=== PATIENT | male | born 1940 | race Caucasian/White ===

== ENCOUNTER 2019-12-24 06:00 | Outpatient (RCR) | payer MEDICARE, SELFPAY | END 2020-01-17 23:59 | disposition home or self-care (01) | LOC: WPT 06:00 | PROVIDERS: Family Provider Nurse Practitioner; PCP Nurse Practitioner; Referring Provider Physician Assistant Surgical; Visit Provider Physician Assistant Surgical | DX: Z47.1 Aftercare following joint replacement surgery (principal); Z96.651 Presence of right artificial knee joint | CPT/HCPCS: 97110; 97112; 97116; 97161 ==

== ENCOUNTER 2020-01-18 06:00 | Outpatient (RCR) | payer MEDICARE, SELFPAY | END 2020-02-17 23:59 | disposition home or self-care (01) | LOC: WPT 06:00 | PROVIDERS: Family Provider Nurse Practitioner; PCP Nurse Practitioner; Referring Provider Physician Assistant Surgical; Visit Provider Physician Assistant Surgical | DX: Z47.1 Aftercare following joint replacement surgery (principal); Z96.651 Presence of right artificial knee joint | CPT/HCPCS: 97110 ==

== ENCOUNTER 2021-02-06 21:40 | Inpatient (IN) | payer MEDICARE, SELFPAY ==
[2021-02-06 21:07] VITALS: BMI 35.4
[2021-02-06 21:39] VITALS: BP 190/100; PULSE 76; RESP 18; TEMP 36.6; O2SAT 96
--- NOTE | 2021-02-06 21:45 | PM.HP ---
Providers/Chief Complaint Admitting Physician: Jacobo Chatman Primary Care Provider: Miguelangel High Chief Complaint: had small stroke History of Present Illness The patient is a transfer from [facility] with diagnosis of CVA. Fernando Ortega is a 80 year old male with past medical history of hypertension, diabetes who presented to emergency room with complaints of sudden onset of confusion this morning. Imaging subsequently revealed left parietal subacute CVA. According to the patient he was at his baseline state of health this morning. The symptoms started suddenly when he tried to open his gun safe. At that point he developed confusion and was unable to open the door of the safe. He could not find any words to speak. He denies any similar episodes in the past. Denies any history of heart disease or stroke. He denies associated focal weakness or sensory loss. Denies problems with balance or coordination. Denies problems with vision or hearing. He has chronic problems with hearing. No facial asymmetry. Denies chest pain, shortness of breath, cough, palpitations. No fever or chills. Past medical history significant for BPH, diabetes and hypertension. He is ex-smoker. Denies alcohol. Surgical history is positive for right total knee replacement. Review of Systems General: Reports: 10 or more systems reviewed and unremarkable except in HPI and below Medications/Allergies Allergies Allergy/AdvReac Type Severity Reaction Status Date / Time No Known Allergies Allergy Verified 02/06/21 21:23 Vitals/I&O/Wt Weight last 48 hrs Weight 121.835 kg Physical Exam Narrative: EXAM NARRATIVE: The patient is awake alert and oriented. No acute distress. Mood and affect are appropriate. Responses are adequate. Is a poor historian due to difficulty finding words. However he is able to answer to simple questions. Primarily answers yes or no. Occasionally stumbles in his answers. However there is no aphasia or dysarthria. He is oriented currently x4. No acute distress Skin is warm and dry. Moist mucous brains Eyes PERRL, extraocular muscles are intact Cranial nerves II through XII are grossly intact No focal weakness or sensory loss. Cerebellar tests are grossly within normal range. Neck is supple. No JVD Lungs are clear to auscultation bilaterally. No respiratory distress Heart S1, S2, regular Abdomen obese, soft, nontender, bowel sounds are present Extremities no edema cyanosis or calf tenderness bilaterally Data Other Labs: Please see CT report in the patient's chart. It showed small left parietal subacute CVA. No UTI CBC and chemistry panel without gross abnormalities. A&P Additional A&P Information 80-year-old male with past medical history of hypertension, diabetes, BPH who presents with complaints of sudden onset confusion and difficulty with speech. Left parietal subacute CVA. Will start stroke work-up including MRI of the brain, MRA head and neck, echo, EKG. We will continue aspirin, statin. Blood pressure management per stroke protocol. Hypertension. As above. Dyslipidemia. Check fasting lipids in the morning. DVT prophylaxis. Lovenox. CODE STATUS. The patient wants to be full code. The plan of care was discussed with the patient. He verbalized understanding and agreement. Attestations Medical Necessity Statement*: Based on my assessment of patient's condition he will require more than 2 midnights in the hospital for completion of the work-up and Coding Level of Care Code Acute Service Liaison Representative for Vickie Plummer
--- NOTE | 2021-02-06 21:50 | ECG_ITS ---
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 Measurements Intervals [place] Rate: 63 P: 52 [place]: 141 QRS: 57 QRSD: 111 T: 79 QT: 427 QTc: 437 Interpretive Statements SINUS RHYTHM MODERATE INTRAVENTRICULAR CONDUCTION DELAY [110+ ms QRS DURATION] No previous ECG available for comparison Electronically Signed On 02-10-2021 18:42:[address] M.D. [email or web address] Club81st medical groupRemark Mediauniversity hospitals cleveland medical centerTherapeutic Monitoring Systems Inc./store/[id number]
[2021-02-06] MEDS: enoxaparin 40 mg/0.4 mL Syringe SUBCUT (22:12)
[2021-02-06 23:56] VITALS: BP 144/69; PULSE 60; RESP 18; TEMP 36.4; O2SAT 95
[2021-02-07] VITALS (9 sets, daily range): BP systolic 145–179; BP diastolic 71–91; PULSE 62–71; RESP 16–20; TEMP 36.3–36.9; O2SAT 93–95
--- NOTE | 2021-02-07 06:00 | USCV_ITS ---
Fernando Ortega Age: 80 Gender: M : 1940 Exam Date: 02/07/2021 09:01 Ordering Phys: Jacobo Chatman MD Technologist: Jonna Arias Exam Location: [facility] Indication: CVA BP: 179 / 91 HR: 69 Rhythm: Sinus Technical Quality: Fair MEASUREMENTS (Male / Female) Normal Values 2D ECHO LV Diastolic Diameter PLAX 3.3 cm 4.2 - 5.9 / 3.9 - 5.3 cm LV Systolic Diameter PLAX 2.3 cm LV Chamber Size 3.6 cm IVS Diastolic Thickness 1.6 cm 0.6 - 1.0 / 0.6 - 0.9 cm IVS Systolic Thickness 1.8 cm LVPW Diastolic Thickness 1.0 cm 0.6 - 1.0 / 0.6 - 0.9 cm LVPW Systolic Thickness 1.0 cm RV Chamber Size 2.6 cm LVOT Diameter 2.2 cm LV Ejection Fraction 2D Teich 61.2 % LV Ejection Fraction MOD 2C 63.7 % LV Ejection Fraction 2C AL 64.9 % LA Diameter 3.5 cm LA Width 2.8 cm LA Height 5.4 cm RA Width 2.5 cm RA Height 3.4 cm Aorta at Sinotubular Diameter 2.6 cm M-MODE LV Diastolic Diameter MM 5.7 cm 4.2 - 5.9 / 3.9 - 5.3 cm LV Systolic Diameter MM 3.6 cm LV Ejection Fraction MM Teich 66.0 % IVS Diastolic Thickness MM 1.3 cm 0.6 - 1.0 / 0.6 - 0.9 cm IVS Systolic Thickness MM 1.5 cm LVPW Diastolic Thickness MM 1.4 cm 0.6 - 1.0 / 0.6 - 0.9 cm LVPW Systolic Thickness MM 2.1 cm Aortic Annulus Diameter 4.1 cm LA Ao Ratio MM 1.0 DOPPLER AV Peak Velocity 143.3 cm/s LVOT Peak Velocity 101.0 cm/s AV Area Cont Eq vti 2.6 cm squared AV Area Cont Eq pk 2.6 cm squared MV Area PHT 3.3 cm squared Mitral E to A Ratio 0.5 MV E' Velocity 34.0 cm/s Mitral E to MV E' Ratio 9.8 Mitral E to LV E' Lateral Ratio 7.6 Mitral E to LV E' Septal Ratio 13.8 TV Peak E Velocity 31.0 cm/s Right Atrial Pressure 3.0 mmHg PV Peak Velocity 105.0 cm/s RV Acceleration Time 0.1 s RV Ejection Time 0.3 s RV AcT/ET 0.3 FINDINGS Left Ventricle Normal left ventricular size. LV systolic function with EF of 55-60%. No regional wall motion abnormalities. Grade 1 diastolic dysfunction Right Ventricle The right ventricle is normal in size and function. Right Atrium The right atrium is normal in size. Left Atrium The left atrium is normal in size. Mitral Valve Structurally normal mitral valve without significant stenosis or prolapse. There is mild mitral regurgitation. Aortic Valve Not well visualized. No significant stenosis. There is no aortic regurgitation. Tricuspid Valve Structurally normal tricuspid valve without significant stenosis or regurgitation. Insufficient TR jet to calculate RVSP Pulmonic Valve Not well visualized Pericardium Normal pericardium without effusion. Aorta Normal ascending aorta dimension. CONCLUSIONS LV systolic function is normal with EF of 55-60% Grade 1 diastolic dysfunction Mild mitral regurgitation No comparison study is available Rene Jensen MD (Electronically Signed) Final Date: 07 Feb 2021 16:06 S
[2021-02-07 06:15] LABS: Basophils % 0.5 %; Eosinophils # 0.1 10^3/uL (0.0-0.8); Eosinophils % 1.8 %; Hematocrit 45.2 % (42.0-52.0); Hemoglobin 14.5 g/dL (11.7-16.6); Lymphocytes # 1.6 10^3/uL (0.8-4.8); Lymphocytes % 27.4 %; Mean Corpuscular HGB Conc 32.1 g/dL (30.0-36.0); Mean Corpuscular Hemoglobin 29.2 pg (28.0-34.0); Mean Corpuscular Volume 91.1 fL (80-94); Mean Platelet Volume 11.1 fL (7.4-10.4); Monocytes # 0.5 10^3/uL (0.2-0.9); Monocytes % 7.8 %; Neutrophils # 3.73 10^3/uL (1.8-7.7); Neutrophils % 62.3 %; Nucleated Red Blood Cells % 0 %; Platelet Count 203 10^3/cmm (130-400); Red Blood Count 4.96 10^6/uL (4.1-5.3); Red Cell Distribution Width 13.2 % (12.1-15.1)
[2021-02-07 06:30] LABS: Estmated Average Glucose 103; Hemoglobin A1C 5.2 % (4.0-6.0)
[2021-02-07 06:37] LABS: Alanine Aminotransferase 9 U/L (0-41); Albumin Level 3.9 g/dL (3.5-5.2); Alkaline Phosphatase 71 IU/L (40-130); Aspartate Amino Transferase 14 U/L (0-40); Blood Urea Nitrogen 18 mg/dL (8-23); Carbon Dioxide 30 mmol/L (22-29); Chloride 104 mmol/L (98-107); Chol HDL Ratio 4.75 mg/dL (1.0-5.00); Cholesterol 171 mg/dL (0-200); Globulin 2.8 g/dL (1.3-4.6); Glucose 97 mg/dL (65-115); HDL Cholesterol 36 mg/dL (60-100); LDL Cholesterol Calculated 113 mg/dL (50-129); LDL HDL Ratio 3.14 RATIO (0.00-3.22); Magnesium 2.1 mg/dL (1.7-2.3); Osmolality Calculated 296 mOsm/kg (285-295); Sodium 142 mmol/L (136-145); Total Bilirubin 0.5 mg/dL (0.15-1.2); Total Protein 6.7 g/dL (6.6-8.7); Triglycerides 108 mg/dL (0-150)
[2021-02-07 06:39] LABS: Anion Gap 11.9 (5-19); Potassium 3.9 mmol/L (3.5-5.1)
--- NOTE | 2021-02-07 07:34 | PC.NURSE ---
I reported the bp to the nurse 179/91
[2021-02-07] MEDS: aspirin 81 mg EC Tablet 162 MG PO (08:47)
--- NOTE | 2021-02-07 08:53 | MRR_ITS ---
PROCEDURE INFORMATION: Exam: MR Head Without Contrast Exam date and time: 02/07/2021 8:54 AM Age: 80 years old Clinical indication: Altered mental status/memory loss; Additional info: CVA TECHNIQUE: Imaging protocol: MR of the head without contrast. COMPARISON: No relevant prior studies available. FINDINGS: Brain: Small acute/recent left basal ganglia lacunar infarct. No hemorrhage, edema, or mass effect. Chronic microvascular ischemic change. Small old left parietal infarction. Cerebral ventricles: Normal. No ventriculomegaly. Bones/joints: Unremarkable. Paranasal sinuses: Normal as visualized. No acute sinusitis. Mastoid air cells: Normal as visualized. No mastoid effusion. Orbital cavity: Unremarkable. Soft tissues: Unremarkable. MR/MR head wo con* [id number] IMPRESSION: Acute/recent left basal ganglia infarct.
--- NOTE | 2021-02-07 09:15 | ECG_ITS ---
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 Measurements Intervals [place] Rate: 68 P: 48 [place]: 146 QRS: 37 QRSD: 109 T: 70 QT: 408 QTc: 434 Interpretive Statements SINUS RHYTHM Compared to ECG 02/06/2021 23:22:49 Intraventricular conduction delay no longer present Electronically Signed On 02-10-2021 18:38:[address] M.D. [email or web address] [email or web address] grant usaf medical [email or web address]/store/[id number]
--- NOTE | 2021-02-07 11:15 | ECG_ITS ---
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 Measurements Intervals [place] Rate: 76 P: 31 DE: 129 QRS: 30 QRSD: 110 T: 67 QT: 377 QTc: 424 Interpretive Statements SINUS RHYTHM NONSPECIFIC T-WAVE ABNORMALITY Compared to ECG 02/07/2021 09:36:56 T-wave abnormality now present Electronically Signed On 02-10-2021 18:42:[address] M.D. [email or web address] regional hospitalPlizydunlap memorial hospital.[employer]/store/[id number]
[2021-02-07] MEDS: enoxaparin 120 mg/0.8 mL Syringe SUBCUT ×2 (11:49→20:30)
[2021-02-07] MEDS: sodium chloride 0.9% 1,000 ML 100 ML IV ×2 (12:04→22:17)
--- NOTE | 2021-02-07 12:05 | PM.PN ---
Subjective Subjective: Interval history: This morning patient was examined, this morning patient was examined, is at bedside, patient is alert to person, to place, not to time, he follows all commands, no focal neurologic deficits, no significant facial droop, no paresthesias, he does have evidence of dementia, tells me mild dementia, he has been more forgetful at times, but during my examination what I can discern is is that he does have word finding difficulty, he will start off a sentence, and will not be able to finish it, no slurring of the speech, no cerebellar signs, denies seeing or hearing things are not there, denies any visual loss, at bedside tells me that he does have a history of atrial fibrillation, was on verapamil, he is not on blood thinners she is not sure why, as he has been fine for many years, no issues of GI bleeds, no history of bleeding currently patient can answer a lot of questions, but does have short-term memory loss, does have word finding difficulty Vitals/I&O/Wt Last Vital Signs Temp 97.9 F 02/07/21 11:47 Pulse 71 02/07/21 11:47 Resp 16 02/07/21 11:47 BP 169/84 02/07/21 11:47 Pulse Ox 95 02/07/21 11:47 02/06/21 02/07/21 02/07/21 22:59 06:59 14:59 Output Total 300 / 300 Balance -300 / -300 Weight last 48 hrs Weight 121.835 kg Physical Exam Const: COMMON NORMALS: no acute distress and patient oriented x3 Neck/C-Spine: COMMON NORMALS: no JVD Resp: COMMON NORMALS: normal respiratory effort, No retractions, No use of accessory muscles and clear to auscultation bilaterally AUSCULTATION: clear to auscultation bilaterally Cardio: COMMON NORMALS: no JVD, regular rate, regular rhythm, S1 normal heart sound present and S2 normal heart sound present RATE: regular rate RHYTHM: regular rhythm HEART SOUNDS: S1 normal heart sound present and S2 normal heart sound present GI: COMMON NORMALS: Normal to inspection, nondistended, normoactive bowel sounds present, Soft to palpation, non-tender, No hepatosplenomegaly present, no masses and no bruits PALPATION: Yes Soft to palpation and Yes No hepatosplenomegaly present Extremity: COMMON NORMALS: no pedal edema Neuro: COMMON NORMALS: patient oriented x3, CN's II-XII intact bilaterally, moves all extremities, no focal motor deficits and no sensory deficits noted SPEECH: speech normal and expressive aphasia Psych: COMMON NORMALS: mental status grossly normal Data : 02/07/21 05:53 02/07/21 05:53 A&P Assessment and plan (1) Acute CVA (cerebrovascular accident): -Currently having word finding difficulty -No significant alteration of his mentation -CT of the head at [facility] showed left parietal subacute CVA, out of TPA window, NIH 1, symptoms over 48 hours ago -Plan: -Order MRI of the brain -Carotid artery ultrasound -Cardiac echo, TSH, mag -Telemetry monitoring -Neurochecks, aspiration precautions, seizure precautions, NIH scores -Continue aspirin, statin -Gentle IV hydration -Serial EKGs, serial troponins -Given his history of atrial fibrillation, start therapeutic Lovenox, [id number] score greater than 2 -Start metoprolol 25 mg twice daily Status: Acute (2) Atrial fibrillation: Status: Acute (3) Hypertension: Status: Acute (4) Dementia: -Has some form of dementia, has been more forgetful over the last year or so Status: Acute Additional A&P Information 80-year-old male with past medical history of hypertension, diabetes, BPH who presents with complaints of sudden onset confusion and difficulty with speech. DVT prophylaxis. Lovenox. CODE STATUS. The patient wants to be full code. The plan of care was discussed with the patient. He verbalized understanding and agreement. Attestations Medical Necessity Statement*: Patient requires hospitalization patient requires hospitalization for acute CVA, inpatient, greater than 2 midnights Coding Level of Care Code Acute Ict Project Manager for [facility] Fwd Diagnoses Acute CVA (cerebrovascular accident) I63.9 Atrial fibrillation I48.91 Hypertension I10 Dementia F03.90
[2021-02-07 12:34] LABS: Troponin(5th) Baseline 12 ng/L (0-15)
[2021-02-07 12:40] LABS: NT Pro B Type Natriuretic Pept 134 pg/mL (0-450); Thyroid Stimulating Hormone 1.04 uIU/mL (0.27-4.20)
[2021-02-07] MEDS: metoprolol tartrate 25 mg Tablet PO (12:50)
[2021-02-07 14:05] LABS: Troponin 5 2HR 10.72 ng/L (0-15)
[2021-02-07 14:08] LABS: Troponin 5 2HR Delta -1.28 ABS# (0-10)
--- NOTE | 2021-02-07 14:36 | PC.NUTR ---
NUTR STROKE CONSULT: Consult received for stroke. Will cont to monitor and evaluate appropriately.
--- NOTE | 2021-02-07 15:15 | ECG_ITS ---
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 Measurements Intervals [place] Rate: 60 P: 31 MD: 148 QRS: 32 QRSD: 112 T: 92 QT: 419 QTc: 419 Interpretive Statements SINUS RHYTHM MODERATE INTRAVENTRICULAR CONDUCTION DELAY [110+ ms QRS DURATION] NONSPECIFIC T-WAVE ABNORMALITY Compared to ECG 02/07/2021 11:31:01 Intraventricular conduction delay now present T-wave abnormality still present Electronically Signed On 02-10-2021 18:42:[address] M.D. [email or web address].Crowd Supplypacifica hospital of the valley.[employer]/store/[id number]
[2021-02-07] MEDS: atorvastatin 40 mg Tablet PO (20:27)
[2021-02-08] VITALS (11 sets, daily range): BP systolic 155–183; BP diastolic 77–90; PULSE 52–67; RESP 16–18; TEMP 36.4–36.9; O2SAT 93–95
[2021-02-08] MEDS: metoprolol tartrate 25 mg Tablet PO ×3 (00:35→23:53)
[2021-02-08 06:11] LABS: Basophils % 0.5 %; Eosinophils # 0.2 10^3/uL (0.0-0.8); Eosinophils % 2.8 %; Hematocrit 43.2 % (42.0-52.0); Hemoglobin 14.2 g/dL (11.7-16.6); Lymphocytes # 1.7 10^3/uL (0.8-4.8); Lymphocytes % 30.4 %; Mean Corpuscular HGB Conc 32.9 g/dL (30.0-36.0); Mean Corpuscular Hemoglobin 30.4 pg (28.0-34.0); Mean Corpuscular Volume 92.5 fL (80-94); Mean Platelet Volume 12.7 fL (7.4-10.4); Monocytes # 0.4 10^3/uL (0.2-0.9); Monocytes % 7.7 %; Neutrophils # 3.27 10^3/uL (1.8-7.7); Neutrophils % 58.2 %; Nucleated Red Blood Cells % 0.4 %; Platelet Count 190 10^3/cmm (130-400); Red Blood Count 4.67 10^6/uL (4.1-5.3); Red Cell Distribution Width 13.2 % (12.1-15.1); White Blood Count 5.6 10^3/uL (4.0-10.0)
[2021-02-08 06:22] LABS: INR 1.09 (0.8-1.2)
[2021-02-08 07:57] LABS: Alanine Aminotransferase 13 U/L (0-41); Albumin Level 4.1 g/dL (3.5-5.2); Alkaline Phosphatase 76 IU/L (40-130); Anion Gap 12.9 (5-19); Aspartate Amino Transferase 16 U/L (0-40); Blood Urea Nitrogen 15 mg/dL (8-23); Calcium 8.6 mg/dL (8.5-10.5); Carbon Dioxide 26 mmol/L (22-29); Chloride 107 mmol/L (98-107); Globulin 2.3 g/dL (1.3-4.6); Glucose 108 mg/dL (65-115); Magnesium 2.2 mg/dL (1.7-2.3); Osmolality Calculated 295 mOsm/kg (285-295); Phosphorus 3.3 mg/dL (2.5-4.5); Potassium 3.9 mmol/L (3.5-5.1); Sodium 142 mmol/L (136-145); Total Bilirubin 0.5 mg/dL (0.15-1.2); Total Protein 6.4 g/dL (6.6-8.7)
[2021-02-08] MEDS: sodium chloride 0.9% 1,000 ML 100 ML IV ×2 (08:17→17:41)
[2021-02-08] MEDS: enoxaparin 120 mg/0.8 mL Syringe SUBCUT ×2 (08:18→20:46)
[2021-02-08] MEDS: aspirin 81 mg EC Tablet PO (08:18)
--- NOTE | 2021-02-08 10:10 | PC.NURSE ---
alarm security or surveillance monitor placed on patient.
--- NOTE | 2021-02-08 13:11 | P.PN_ITS ---
Subjective Subjective: Interval history: This morning patient was examined, he follows all commands, this morning when asked what his name was, he was unable to tell me what his name was, when I asked him what his 's name was, he was not able to answer, but during other questions he gets most of the questions right, but does have significant word finding difficulty, the [employer] daily newspaper was in front of him, I had him read out a few sentences which he did without any trouble, but when I asked him direct questions, he has trouble coming up with the right words, has some component of receptive aphasia and word finding difficulty. at bedside tells me this morning he was completely different, he was alert, answering all questions, could speak entire sentences, and this is a bit of a change, but it seems like he has been waxing and waning over the last day or so, he actually got up out of the bed and was urinating in a urinal, no other focal neurologic deficits Vitals/I&O/Wt Last Vital Signs Temp 98.3 F 02/08/21 12:00 Pulse 63 02/08/21 12:00 Resp 16 02/08/21 12:00 BP 155/78 02/08/21 12:00 Pulse Ox 93 02/08/21 12:00 02/07/21 02/08/21 02/08/21 22:59 06:59 14:59 Intake Total 1240 / 1720 400 / 2120 1600 / 1600 Output Total 900 / 900 625 / 625 Balance 1240 / 1720 -500 / 1220 975 / 975 Weight last 48 hrs Weight 124.556 kg Weight 121.835 kg Physical Exam Const: COMMON NORMALS: no acute distress ORIENTATION/CONSCIOUSNESS: Yes awake and Yes oriented to place; not oriented to person and not oriented to time OTHER: Word finding difficulty, receptive aphasia HENMT: COMMON NORMALS: normocephalic HEAD & SCALP: normocephalic Neck/C-Spine: COMMON NORMALS: no JVD Resp: COMMON NORMALS: normal respiratory effort, No retractions, No use of accessory muscles and clear to auscultation bilaterally AUSCULTATION: clear to auscultation bilaterally Cardio: COMMON NORMALS: no JVD, regular rate, regular rhythm, S1 normal heart sound present and S2 normal heart sound present RATE: regular rate RHYTHM: regular rhythm HEART SOUNDS: S1 normal heart sound present and S2 normal heart sound present GI: COMMON NORMALS: Normal to inspection, nondistended, normoactive bowel sounds present, Soft to palpation, non-tender, No hepatosplenomegaly present, no masses and no bruits PALPATION: Yes Soft to palpation and Yes No hepatosplenomegaly present Extremity: COMMON NORMALS: capillary refill normal, no clubbing, cyanosis or edema, no calf tenderness and no pedal edema Neuro: COMMON NORMALS: CN's II-XII intact bilaterally, moves all extremities, no focal motor deficits, no sensory deficits noted and gait normal SENSORIUM/ORIENTATION: No oriented to person, Yes oriented to place and No oriented to time COORDINATION/BALANCE: [id number] test normal SPEECH: speech normal and expressive aphasia COORDINATION: [id number] test normal Psych: COMMON NORMALS: mental status grossly normal Data : 02/08/21 05:41 02/08/21 07:20 A&P Assessment and plan (1) Acute CVA (cerebrovascular accident): -Currently having word finding difficulty, and some component of receptive aphasia, waxing and waning symptomatology -[facility] head at [facility] showed left parietal subacute CVA, out of TPA window, NIH 1, symptoms over 48 hours ago -MRI of the brain shows left basal ganglia acute recent infarct -Cardiac echocardiogram shows EF of 55 to 60%, grade 1 diastolic dysfunction -EKGs do not show any A. fib events -Plan: We will repeat CT of the head to evaluate for cerebral edema, hemorrhagic conversion -Likely consult neurology tomorrow -Carotid artery ultrasound -Telemetry monitoring -Neurochecks, aspiration precautions, seizure precautions, NIH scores -Continue aspirin, statin -Gentle IV hydration -Given his history of atrial fibrillation, not on anticoagulation, start therapeutic Lovenox, [id number] score greater than 2 -Start metoprolol 25 mg twice daily Status: Acute (2) Atrial fibrillation: Status: Acute (3) Hypertension: Status: Acute (4) Dementia: -Has some form of dementia, has been more forgetful over the last year or so Status: Acute Additional A&P Information 80-year-old male with past medical history of hypertension, diabetes, BPH who presents with complaints of sudden onset confusion and difficulty with speech. DVT prophylaxis. Lovenox. CODE STATUS. The patient wants to be full code. The plan of care was discussed with the patient. He verbalized understanding and agreement. Attestations Medical Necessity Statement*: Patient requires hospitalization for acute CVA Coding Level of Care Code Acute Differential Repairer for Vickie Plummer Diagnoses Acute CVA (cerebrovascular accident) I63.9 Atrial fibrillation I48.91 Hypertension I10 Dementia F03.90
--- NOTE | 2021-02-08 13:15 | CTR_ITS ---
PROCEDURE INFORMATION: Exam: CT Head Without Contrast Exam date and time: 02/08/2021 1:44 PM Age: 80 years old Clinical indication: Recent CVA. Follow-up for edema. Evaluate for cerebral edema or hemorrhagic conversion. TECHNIQUE: Imaging protocol: Computed tomography of the head without contrast. Radiation optimization: All CT scans at this facility use at least one of these dose optimization techniques: automated exposure control; mA and/or kV adjustment per patient size (includes targeted exams where dose is matched to clinical indication); or iterative reconstruction. COMPARISON: MR head wo con* [id number] 02/07/2021 10:13 AM RADIATION DOSE METRICS: Total DLP (mGy-cm): 977.67 FINDINGS: Brain: There is an acute lacunar infarct within/adjacent to the left corpus striatum. There are old left occipital and left parietal infarcts with associated encephalomalacia and gliosis. No mass, mass effect or midline shift. There is no evidence of acute large vessel infarct. There is mild patchy subcortical and periventricular hypodensity, most commonly associated with small vessel ischemic disease of indeterminate age. The posterior fossa is grossly unremarkable; however, it is partially obscurred by beam hardening artifact. Cerebral ventricles: The ventricles are prominent, compatible with moderate parenchymal volume loss. Bones/joints: No acute fracture is seen. Paranasal sinuses: The visualized paranasal sinuses are clear. Mastoid air cells: No mastoid effusion. Auditory system: There is probable cerumen in the external auditory canals bilaterally. Orbital cavity: The visualized orbits are unremarkable. CT/CT head wo con* [id number] IMPRESSION: 1. Unchanged acute lacunar infarct within/adjacent to the left corpus striatum. There is no evidence of hemorrhagic conversion. 2. Jczw-pm-nynasevs senescent changes as above. 3. No acute intracranial hemorrhage. Radiation Dose CTDIVOL = (mGy): DLP = 977.67 (mGy-cm)
[2021-02-08] MEDS: atorvastatin 40 mg Tablet PO (20:46)
[2021-02-09] VITALS (7 sets, daily range): BP systolic 182–211; BP diastolic 83–100; PULSE 51–64; RESP 17; TEMP 36.6–36.9; O2SAT 92–95
[2021-02-09] MEDS: sodium chloride 0.9% 1,000 ML 100 ML IV ×2 (02:39→13:09)
--- NOTE | 2021-02-09 05:33 | PC.NURSE ---
SHIFT SUMMARY Has rested well. Pt has no weakness of extremities. Speech is clear but has some difficulty finding words and expressng himself. Has hypertension but is below parameters for prn med. IV infusing at 100ml/hr rate. Telemetry showing SR-SB. HR in upper 50's occ. Voiding well per urinal. Has denied pain or discomfort
[2021-02-09 05:35] LABS: Basophils % 0.4 %; Eosinophils # 0.1 10^3/uL (0.0-0.8); Eosinophils % 2.3 %; Hematocrit 40.3 % (42.0-52.0); Lymphocytes # 1.5 10^3/uL (0.8-4.8); Lymphocytes % 26.8 %; Mean Corpuscular HGB Conc 32.3 g/dL (30.0-36.0); Mean Platelet Volume 11.9 fL (7.4-10.4); Monocytes # 0.4 10^3/uL (0.2-0.9); Monocytes % 7.4 %; Neutrophils # 3.58 10^3/uL (1.8-7.7); Neutrophils % 62.9 %; Nucleated Red Blood Cells % 0 %; Platelet Count 201 10^3/cmm (130-400); Red Blood Count 4.48 10^6/uL (4.1-5.3); Red Cell Distribution Width 13.1 % (12.1-15.1); White Blood Count 5.7 10^3/uL (4.0-10.0)
[2021-02-09 05:54] LABS: INR 1.09 (0.8-1.2)
[2021-02-09 06:10] LABS: Alanine Aminotransferase 8 U/L (0-41); Albumin Level 3.8 g/dL (3.5-5.2); Alkaline Phosphatase 70 IU/L (40-130); Anion Gap 11.6 (5-19); Aspartate Amino Transferase 10 U/L (0-40); Blood Urea Nitrogen 13 mg/dL (8-23); Calcium 8.2 mg/dL (8.5-10.5); Carbon Dioxide 26 mmol/L (22-29); Chloride 110 mmol/L (98-107); Globulin 2.1 g/dL (1.3-4.6); Glucose 94 mg/dL (65-115); Magnesium 2.2 mg/dL (1.7-2.3); NT Pro B Type Natriuretic Pept 245 pg/mL (0-450); Osmolality Calculated 298 mOsm/kg (285-295); Phosphorus 2.6 mg/dL (2.5-4.5); Potassium 3.6 mmol/L (3.5-5.1); Sodium 144 mmol/L (136-145); Total Bilirubin 0.5 mg/dL (0.15-1.2); Total Protein 5.9 g/dL (6.6-8.7)
--- NOTE | 2021-02-09 09:29 | PC.SOCIAL ---
Pg 2 IMM. Explained to pt Pg 2 IMM. No questions voiced. Provided pt a copy. Signed, dated, & timed copy in chart.
[2021-02-09] MEDS: aspirin 81 mg EC Tablet PO (10:43)
[2021-02-09] MEDS: enoxaparin 120 mg/0.8 mL Syringe SUBCUT (10:43)
--- NOTE | 2021-02-09 11:15 | PC.NUTR ---
RD assessment completed and nutrition education provided to pt and spouse. Noted questionable dx of diabetes per MD progress notes-pt denies. Spoke with Dr. Allred and received verbal order to change diet from Consistent Carb to Cardiac to better meet nutritional needs.
[2021-02-09] MEDS: metoprolol tartrate 25 mg Tablet PO (13:09)
--- NOTE | 2021-03-31 16:04 | PM.DCS ---
Discharge Providers Date of Admission: 02/06/21 21:40 Date of Discharge: 02/09/21 Attending Provider at Admission: Jacobo Chatman Attending Provider at Discharge: Ender Allred MD Primary Care Provider: Miguelangel High Diagnoses at Discharge Discharge Diagnosis (1) Acute CVA (cerebrovascular accident): (2) Atrial fibrillation: (3) Hypertension: Status: Acute (4) Dementia: Status: Resolved Reason for Visit Reason for Visit: had small stroke Hospital Course Hospital Course H&P The patient is a transfer from [facility] with diagnosis of CVA. Fernando Ortega is a 80 year old male with past medical history of hypertension, diabetes who presented to emergency room with complaints of sudden onset of confusion this morning. Imaging subsequently revealed left parietal subacute CVA. According to the patient he was at his baseline state of health this morning. The symptoms started suddenly when he tried to open his gun safe. At that point he developed confusion and was unable to open the door of the safe. He could not find any words to speak. He denies any similar episodes in the past. Denies any history of heart disease or stroke. He denies associated focal weakness or sensory loss. Denies problems with balance or coordination. Denies problems with vision or hearing. He has chronic problems with hearing. No facial asymmetry. Denies chest pain, shortness of breath, cough, palpitations. No fever or chills. Past medical history significant for BPH, diabetes and hypertension. He is ex-smoker. Denies alcohol. Surgical history is positive for right total knee replaceme CT of the head at [facility] showed left parietal subacute CVA, out of TPA window, NIH 1, symptoms over 48 hours ago -MRI of the brain shows left basal ganglia acute recent infarct -Cardiac echocardiogram shows EF of 55 to 60%, grade 1 diastolic dysfunction -EKGs do not show any A. fib events head CT repeated. MRI head and echo completed. he was given asa, statin. discharged in improved condition. Physical Exam Const: COMMON NORMALS: no acute distress ORIENTATION/CONSCIOUSNESS: Yes awake and Yes oriented to place; not oriented to person and not oriented to time OTHER: Word finding difficulty, receptive aphasia HENMT: COMMON NORMALS: normocephalic HEAD & SCALP: normocephalic Neck/C-Spine: COMMON NORMALS: no JVD Resp: COMMON NORMALS: normal respiratory effort, No retractions, No use of accessory muscles and clear to auscultation bilaterally AUSCULTATION: clear to auscultation bilaterally Cardio: COMMON NORMALS: no JVD, regular rate, regular rhythm, S1 normal heart sound present and S2 normal heart sound present RATE: regular rate RHYTHM: regular rhythm HEART SOUNDS: S1 normal heart sound present and S2 normal heart sound present GI: COMMON NORMALS: Normal to inspection, nondistended, normoactive bowel sounds present, Soft to palpation, non-tender, No hepatosplenomegaly present, no masses and no bruits PALPATION: Yes Soft to palpation and Yes No hepatosplenomegaly present Extremity: COMMON NORMALS: capillary refill normal, no clubbing, cyanosis or edema, no calf tenderness and no pedal edema Neuro: COMMON NORMALS: CN's II-XII intact bilaterally, moves all extremities, no focal motor deficits, no sensory deficits noted and gait normal SENSORIUM/ORIENTATION: No oriented to person, Yes oriented to place and No oriented to time COORDINATION/BALANCE: [id number] test normal SPEECH: speech normal and expressive aphasia COORDINATION: [id number] test normal Psych: COMMON NORMALS: mental status grossly normal Discharge Data Data Completed and Pending: Completed Studies During Hospitalization Category Date Time Status CT head wo con* 7 0450 Stat Cat Scan 02/08/21 13:15 Completed MR head wo con* 7 0551 Stat MRI 02/07/21 08:53 Completed CV echo complete* [id number] Routine Ultrasound 02/07/21 06:00 Completed Vitals: Last Vital Signs Temp 97.8 F 02/09/21 17:04 Pulse 54 L 02/09/21 17:04 Resp 17 02/09/21 17:04 BP 195/83 02/09/21 17:04 Pulse Ox 93 02/09/21 17:04 Discharge Plan Discharge Patient Disposition: Home Health Service Condition: Stable Prescriptions: New aspirin 81 mg Tablet,Delayed Release (Dr/Ec) 81 mg PO DAILY Qty: 30 RF: 0 atorvastatin 40 mg Tablet 40 mg PO BEDTIME Qty: 30 RF: 0 Continued hydrochlorothiazide 12.5 mg capsule 12.5 mg PO DAILY RF: 0 verapamil 240 mg tablet extended release See Rx Instructions .ROUTE .COMPLEX RF: 0 finasteride 5 mg tablet 5 mg PO DAILY RF: 0 Discharge Orders: Discharge Order (Routine); Ordered 02/09/21 Ordered By: Ender Allred Referrals: Miguelangel High [Primary Care Provider] - 02/17/21 10:40 [facility] - 02/18/21 8:45 am (APPOINTMENT WITH DR [facility]) Discharge Diet: Cardiac Discharge Activity: Resume usual activity Patient Instructions: Aspirin (By mouth), Atorvastatin (By mouth), Opioid Safety, Stroke Stoplight Discharge Attestations Time Spent in Discharge Care*: less than 30 min Quality Metrics Clinical Quality Measures During this hospital stay, did patient experience: Stroke Contraindication to Antithrombotic: Other Contraindication to Anticoagulation: Other Contraindication to Statin: Other Coding Level of Care Code Acute g FW DC note Diagnoses Acute CVA (cerebrovascular accident) I63.9 Atrial fibrillation I48.91 Hypertension I10 Dementia F03.90
== END 2021-02-09 16:50 | disposition home health service (06) | DRG 66 ==
PROVIDERS: Family Medicine; Admitting Provider Internal Medicine; PCP Physician Assistant Medical; Visit Provider Internal Medicine
DX: I63.9 Cerebral infarction, unspecified (principal); R47.01 Aphasia; I10 Essential (primary) hypertension; R29.701 NIHSS score 1; R41.0 Disorientation, unspecified; I48.91 Unspecified atrial fibrillation; F03.90 Unspecified dementia, unspecified severity, without behavioral disturbance, psychotic disturbance, mood disturbance, and anxiety; E11.9 Type 2 diabetes mellitus without complications; E78.5 Hyperlipidemia, unspecified; N40.0 Benign prostatic hyperplasia without lower urinary tract symptoms; Z96.651 Presence of right artificial knee joint
CPT/HCPCS: 36415; 70450; 70551; 80053; 80061; 83036; 83735; 83880; 84100; 84443; 84484; 85025; 85610; 92507; 92523; 92610; 93005; 93306; 96372; 97110; 97116; 97161; 97166; J1650; J7030

== ENCOUNTER → 2021-02-18 08:29 | Outpatient (BNVA) | payer MEDICARE, SELFPAY | PROVIDERS: PCP Physician Assistant Medical; Referring Provider Family Medicine; Visit Provider Nurse Practitioner | DX: Z86.73 Personal history of transient ischemic attack (TIA), and cerebral infarction without residual deficits (principal) | CPT/HCPCS: 99204 ==

== ENCOUNTER → 2022-01-11 11:36 | Outpatient (BNVA) | payer MEDICARE, SELFPAY | PROVIDERS: PCP Physician Assistant Medical; Visit Provider Nurse Practitioner | DX: I10 Essential (primary) hypertension (principal); I48.91 Unspecified atrial fibrillation; E78.5 Hyperlipidemia, unspecified; Z12.5 Encounter for screening for malignant neoplasm of prostate; Z79.899 Other long term (current) drug therapy; E55.9 Vitamin D deficiency, unspecified; Z00.00 Encounter for general adult medical examination without abnormal findings | CPT/HCPCS: 80053; 80061; 82306; 83036; 84443; 85025; G0103 ==

== ENCOUNTER 2023-12-21 06:00 | Outpatient (RCR) | payer MEDICARE, SELFPAY | END 2024-01-17 23:59 | disposition home or self-care (01) | LOC: WPT 06:00 | PROVIDERS: Visit Provider Family Medicine | DX: M62.81 Muscle weakness (generalized) (principal); Z74.09 Other reduced mobility | CPT/HCPCS: 97110; 97112; 97161; 97530 ==

== ENCOUNTER 2024-01-18 06:00 | Outpatient (RCR) | payer MEDICARE, SELFPAY | END 2024-02-17 23:59 | disposition home or self-care (01) | LOC: WPT 06:00 | PROVIDERS: Visit Provider Family Medicine | DX: M62.81 Muscle weakness (generalized) (principal); Z74.09 Other reduced mobility | CPT/HCPCS: 97110; 97112; 97116; 97530 ==